=== PATIENT | female | born 1990 | race Two or more races ===

== ENCOUNTER 2017-10-12 18:02 | Emergency (ER) | payer BC ==
[~2017-10-12] VITALS: Ht 165.1 cm; Wt 54.6 kg
[2017-10-12 19:09] LABS: BASOPHILS # (AUTO) 0.02 x10^3/uL (0-0.1); BASOPHILS % (AUTO) 0 % (0-1); EOSINOPHILS # (AUTO) 0.04 x10^3/uL (0-0.4); EOSINOPHILS % (AUTO) 1 % (1-7); LYMPHOCYTES # (AUTO) 2.87 x10^3/uL (1-3.4); LYMPHOCYTES % (AUTO) 39 % (22-44); MD NO; MEAN CORPUSCULAR HEMOGLOBIN 31.5 pg (27.0-34.8); MEAN CORPUSCULAR HGB CONC 33.7 g/dL (32.4-35.8); MEAN CORPUSCULAR VOLUME 93.4 fL (80-100); MEAN PLATELET VOLUME 7.9 fL (7.4-10.4); MONOCYTES # (AUTO) 0.32 x10^3/uL (0.2-0.8); MONOCYTES % (AUTO) 4 % (2-9); NEUTROPHILS % (AUTO) 56 % (42-75); PLATELET COUNT 304 x10^3/uL (130-400); RED BLOOD COUNT 4.64 x10^6/uL (3.82-5.3); RED CELL DISTRIBUTION WIDTH 14.5 % (9.6-15.2)
[2017-10-12 19:17] LABS: ALANINE AMINOTRANSFERASE 31 U/L (12-78); ALBUMIN 3.7 g/dL (3.4-5.0); ANION GAP 7 mmol/L (5-15); CALCIUM 8.5 mg/dL (8.5-10.1); CHLORIDE 106 mmol/L (98-107); CREATININE 0.87 mg/dL (0.55-1.02)
[2017-10-12 19:22] LABS: ALKALINE PHOSPHATASE 118 U/L (45-117); BILIRUBIN,TOTAL 0.3 mg/dL (0.2-1.0); TOTAL PROTEIN 7.6 g/dL (6.4-8.2)
[2017-10-12] MEDS ORDERED: SODIUM CHLORIDE 0.9% 1,000ML IVBOLUS ONE (20:00)
[2017-10-12] MEDS ORDERED: PROCHLORPERAZINE 5 MG/ML, 2ML IVPush ONE (20:00)
[2017-10-12] MEDS ORDERED: LORazepam 2 MG/ML, 1ML IVPush ONE (20:00)
[2017-10-12] MEDS ORDERED: LORazepam 2 MG/ML, 1ML ONE (20:19)
[2017-10-12] MEDS ORDERED: PROCHLORPERAZINE 5 MG/ML, 2ML ONE (20:19)
[2017-10-12 21:58] VITALS: BP 137/98
== END 2017-10-12 22:01 | disposition home or self-care (01) ==
LOC: ED 20:00
DX: F10.220 Alcohol dependence with intoxication, uncomplicated (principal)
CPT/HCPCS: 36415; 71045; 80053; 80307; 83690; 84439; 84443; 84703; 85025; 93005; 96361; 96374; 96375; 99285; J0780; J2060; J7030

== ENCOUNTER 2018-08-25 20:01 | Emergency (ER) | payer OTHER ==
[~2018-08-25] VITALS: Ht 165.1 cm; Wt 52.1 kg
--- NOTE | 2018-08-25 20:07 | NUR ---
NIL X1
--- NOTE | 2018-08-25 20:20 | NUR ---
ATTEMPTED TO CALL PT FROM LOBBY TO TRIAGE FOR 2ND TIME WITH NO RESPONSE.
[2018-08-25] MEDS ORDERED: BUPR1FIL3 PO (20:53)
--- NOTE | 2018-08-25 20:57 | NUR ---
PT PRESENTED WITH C/O COUGH, SOB, WHEEZING. ALSO C/O CP WITH DEEP BREATHS THAT STARTED THIS MORNING. PT STATED SHE STARTED SMOKING CIGARETTES AND MARIJUANA ALOT X 2MOS. MONITORS APPLIED, SIDERAILS UP X2, CALL LIGHT WITHIN REACH. PT TO XRAY
[2018-08-25] MEDS ORDERED: ALBUTEROL/IPRATROPIUM 2.5MG/0.5MG, 3 ML NPPB ONE ×2 (21:00→22:00)
[2018-08-25] MEDS ORDERED: ALBUTEROL/IPRATROPIUM 2.5MG/0.5MG, 3 ML ONE (21:03)
--- NOTE | 2018-08-25 21:05 | NUR ---
PT MEDICATED PER JUL. RT AT PT'S BEDSIDE FOR T/X
[2018-08-25] MEDS ORDERED: ALBUTEROL SULFATE 2.5 MG/3 ML ONE (21:17)
[2018-08-25] MEDS ORDERED: ALBUTEROL SULFATE 2.5 MG/3 ML NPPB PRN (21:30)
[2018-08-25] MEDS ORDERED: ALBUTEROL 0.5%, 20ML ONE (22:05)
[2018-08-25 22:10] VITALS: BP 122/65
[2018-08-25] MEDS ORDERED: ALBUTEROL 0.5%, 20ML NPPBCONT PRN (22:30)
--- NOTE | 2018-08-25 23:40 | NUR ---
ERP AT PT'S BEDSIDE FOR RECHECK
--- NOTE | 2018-08-25 23:40 | NUR ---
PT RESTING ON GURNEY, NOTED PT WITH SP02-84% R/A, APPLIED 2L N/C-SPO2 NOW 93%. PT STATED " I CAN'T STAY, I HAVE TO GO". DISCUSSED POC WITH PT, PT AGREED TO WAIT AND SEE ERP PRIOR TO LEAVING AMA. ERP UPDATED REGARDING PT WANTING TO LEAVE AMA, AND O2 STATUS
== END 2018-08-25 23:50 | disposition left against medical advice (07) ==
LOC: ED 21:11
DX: J98.01 Acute bronchospasm (principal); R09.02 Hypoxemia
CPT/HCPCS: 71046; 93005; 94640; 94644; 99291; J7512; J7613; J7620

== ENCOUNTER 2018-09-04 09:10 | Emergency (ER) | payer SELFPAY ==
[~2018-09-04] VITALS: Ht 165.1 cm; Wt 50.2 kg
[~2018-09-04 09:10] MED LIST: BUPR1FIL3 PO
--- NOTE | 2018-09-04 09:24 | NUR ---
pt to room from lobby
--- NOTE | 2018-09-04 09:27 | NUR ---
27 Y/O FEMALE PRESENTS TO ED WITH C/O "I WAS HERE BEFORE FOR THIS. LAST TIME I GOT SOME STEROIDS AND AN INHALER. MY INHALER RAN OUT THREE DAYS AGO." PT PLACED ON CONT PULSE OX,NIBP. PT ON 3LPM OXYGEN. OXYGEN SATURATION 94%. NO C/O N/V/D, TRAUMA, CP.
[2018-09-04] MEDS ORDERED: SODIUM CHLORIDE FLUSH 10ML SYR IVF ONE (09:30)
--- NOTE | 2018-09-04 09:32 | NUR ---
pt texting on cell phone during assessment. no acute distress noted.
[2018-09-04] MEDS ORDERED: ALBUTEROL/IPRATROPIUM 2.5MG/0.5MG, 3 ML ONE (09:43)
[2018-09-04] MEDS ORDERED: ALBUTEROL SULFATE 2.5 MG/3 ML NPPB SCH (10:00)
[2018-09-04] MEDS ORDERED: ALBUTEROL SULFATE 2.5 MG/3 ML ONE (10:30)
[2018-09-04 10:50] VITALS: BP 106/70
--- NOTE | 2018-09-04 11:47 | NUR ---
PT NOW BACK FROM BATHROOM. REATTACHED TO MONITORS
--- NOTE | 2018-09-04 11:48 | NUR ---
LATE ENTRY FOR 1130 PT AMBULATORY WITH STEADY GAIT TO BATHROOM.
--- NOTE | 2018-09-04 11:48 | NUR ---
LATE ENTRY FOR 1030 PT RESTING ON GURNEY. TEXTING ON CELL PHONE. NO ACUTE DISTRESS NOTED. NO NEEDS REQUESTED AT THIS TIME.
--- NOTE | 2018-09-04 12:42 | NUR ---
Patient/Caregiver given discharge instructions and they have confirmed that they understand the instructions. Patient ambulatory with steady gait. PT LEFT WITH ALL PERSONAL BELONGINGS.
== END 2018-09-04 12:44 | disposition home or self-care (01) ==
LOC: ED 09:48
DX: J45.41 Moderate persistent asthma with (acute) exacerbation (principal); F17.200 Nicotine dependence, unspecified, uncomplicated
CPT/HCPCS: 71045; 93005; 94640; 99284; J7512; J7613

== ENCOUNTER 2018-09-16 09:41 | Emergency (ER) | payer MEDICAID ==
[~2018-09-16] VITALS: Ht 165.1 cm; Wt 49.8 kg
--- NOTE | 2018-09-16 10:02 | NUR ---
pt to ed after witnessed 45 second tonic/clonic sz today. mom states pt's head was resting against bath tub. pt reports pain to neck. noter reports nearly no post-ictal period. pt recently dc'd from rehab for heroin use. last used 9 days ago. currently taking subonoxe. connected to monitors. tachy 110s, all other vss. edpa to bedside. awaiting orders at this time.
[2018-09-16] MEDS ORDERED: SODIUM CHLORIDE FLUSH 10ML SYR IVF ONE (10:30)
[2018-09-16 10:51] LABS: BASOPHILS # (AUTO) 0.02 x10^3/uL (0-0.1); BASOPHILS % (AUTO) 1 % (0-1); EOSINOPHILS # (AUTO) 0.13 x10^3/uL (0-0.4); EOSINOPHILS % (AUTO) 3 % (1-7); LYMPHOCYTES # (AUTO) 1.81 x10^3/uL (1-3.4); LYMPHOCYTES % (AUTO) 36 % (22-44); MD NO; MEAN CORPUSCULAR HEMOGLOBIN 28.8 pg (27.0-34.8); MEAN CORPUSCULAR HGB CONC 32.9 g/dL (32.4-35.8); MEAN CORPUSCULAR VOLUME 87.7 fL (80-100); MEAN PLATELET VOLUME 8.4 fL (7.4-10.4); MONOCYTES # (AUTO) 0.19 x10^3/uL (0.2-0.8); MONOCYTES % (AUTO) 4 % (2-9); NEUTROPHILS # (AUTO) 2.88 x10^3/uL (1.8-6.8); NEUTROPHILS % (AUTO) 57 % (42-75); PLATELET COUNT 339 x10^3/uL (130-400); RED BLOOD COUNT 4.74 x10^6/uL (3.82-5.3); RED CELL DISTRIBUTION WIDTH 19.2 % (9.6-15.2)
--- NOTE | 2018-09-16 10:51 | NUR ---
pt resting in room. vss. multiple nurses attempting iv at this time.
[2018-09-16 10:59] LABS: ALANINE AMINOTRANSFERASE 23 U/L (12-78); ALBUMIN 3.7 g/dL (3.4-5.0); ANION GAP 8 mmol/L (5-15); CALCIUM 8.8 mg/dL (8.5-10.1); CHLORIDE 104 mmol/L (98-107); CREATININE 0.87 mg/dL (0.55-1.02)
[2018-09-16 11:02] LABS: ALKALINE PHOSPHATASE 63 U/L (45-117); BILIRUBIN,TOTAL 0.2 mg/dL (0.2-1.0); TOTAL PROTEIN 7.1 g/dL (6.4-8.2)
--- NOTE | 2018-09-16 11:40 | NUR ---
ed,d to bs to updat on poc. awaiting dispo.
[2018-09-16 11:57] LABS: MICROSCOPIC AUTO
[2018-09-16 11:58] LABS: CULTURE INDICATED? NO
[2018-09-16 12:21] VITALS: BP 101/89
== END 2018-09-16 12:26 | disposition home or self-care (01) ==
LOC: ED 10:01
DX: R55 Syncope and collapse (principal)
CPT/HCPCS: 36415; 70450; 80053; 81001; 84703; 85025; 93005; 99284

== ENCOUNTER 2018-10-30 19:47 | Emergency (ER) | payer MEDICAID ==
[~2018-10-30] VITALS: Ht 167.6 cm; Wt 49.5 kg
[2018-10-30 20:18] VITALS: BP 124/94
[2018-10-30] MEDS ORDERED: CARBAMIDE PEROXIDE EAR DROPS 6.5%, 15ML RIGHT EAR ONE (20:30)
[2018-10-30] MEDS ORDERED: CARBAMIDE PEROXIDE EAR DROPS 6.5%, 15ML ONE ×2 (20:38)
--- NOTE | 2018-10-30 21:31 | NUR ---
Pt reports feeling "much better" after second irrigation.
== END 2018-10-30 22:04 | disposition home or self-care (01) ==
LOC: ED 22:00
DX: H61.21 Impacted cerumen, right ear (principal); H66.91 Otitis media, unspecified, right ear
CPT/HCPCS: 69209; 99283

== ENCOUNTER 2018-12-03 08:41 | Emergency (ER) | payer MEDICAID ==
[~2018-12-03] VITALS: Ht 165.1 cm; Wt 47.2 kg
[2018-12-03 09:14] LABS: BASOPHILS # (AUTO) 0.03 x10^3/uL (0-0.1); BASOPHILS % (AUTO) 0 % (0-1); EOSINOPHILS # (AUTO) 1.45 x10^3/uL (0-0.4); EOSINOPHILS % (AUTO) 19 % (1-7); LYMPHOCYTES # (AUTO) 1.08 x10^3/uL (1-3.4); LYMPHOCYTES % (AUTO) 14 % (22-44); MD NO; MEAN CORPUSCULAR HEMOGLOBIN 25.3 pg (27.0-34.8); MEAN CORPUSCULAR HGB CONC 31.3 g/dL (32.4-35.8); MEAN CORPUSCULAR VOLUME 80.9 fL (80-100); MEAN PLATELET VOLUME 7.5 fL (7.4-10.4); MONOCYTES # (AUTO) 0.31 x10^3/uL (0.2-0.8); MONOCYTES % (AUTO) 4 % (2-9); NEUTROPHILS # (AUTO) 4.63 x10^3/uL (1.8-6.8); NEUTROPHILS % (AUTO) 62 % (42-75); PLATELET COUNT 383 x10^3/uL (130-400); RED BLOOD COUNT 4.11 x10^6/uL (3.82-5.3); RED CELL DISTRIBUTION WIDTH 18.2 % (9.6-15.2)
[2018-12-03 09:25] LABS: ALBUMIN 3.5 g/dL (3.4-5.0); ANION GAP 6 mmol/L (5-15); CALCIUM 8.8 mg/dL (8.5-10.1); CHLORIDE 109 mmol/L (98-107); CREATININE 0.76 mg/dL (0.55-1.02)
[2018-12-03 09:28] LABS: TROPONIN I < 0.015 ng/mL (0.000-0.045)
--- NOTE | 2018-12-03 10:04 | NUR ---
TO ROOM FROM LOBBY. NAD.
--- NOTE | 2018-12-03 10:16 | NUR ---
PT STATES SHE HAS BEEN HAVING A HARD TIME BREATHING THE LAST COUPLE MONTHS. PT STATES SHE HAD CP THIS AM WITH INCREASED SOB. PT WITH HX OF SMOKING HEROIN, AND THINKS HER BREATHING PROBLEMS ARE RELATED TO THAT. PT TO CONT PULSE OX, CARD MONITOR, NIBP.
[2018-12-03] MEDS ORDERED: SODIUM CHLORIDE 0.9% 1,000ML IVBOLUS ONE (10:30)
--- NOTE | 2018-12-03 11:08 | NUR ---
LAB IN TO DRAW PT. ORDERS RECIEVED FOR PIV, FLUID BOLUS, WILL START LINE
--- NOTE | 2018-12-03 12:13 | NUR ---
PT AMBULATED TO BR, PT WITH STEADY GAIT
--- NOTE | 2018-12-03 12:27 | NUR ---
Patient given discharge instructions and they have confirmed that they understand the instructions. Patient ambulatory with steady gait. Patient left with dc paperwork, prescription, note for medical clearance and ability to take antibiotics in rehab, and all personal belongings. NADN. Pt encouraged to return to ED if symptoms worsen or change.
[2018-12-03 12:28] VITALS: BP 131/88
== END 2018-12-03 12:31 | disposition home or self-care (01) ==
LOC: ED 10:30
DX: J18.1 Lobar pneumonia, unspecified organism (principal); F11.23 Opioid dependence with withdrawal
CPT/HCPCS: 36415; 71046; 80048; 82040; 83605; 84145; 84484; 85025; 87040; 93005; 99284; J7030

== ENCOUNTER 2019-05-19 20:12 | Emergency (ER) | payer MEDICAID ==
[~2019-05-19] VITALS: Ht 165.1 cm; Wt 47.9 kg
[2019-05-19] MEDS ORDERED: ALBUTEROL/IPRATROPIUM 2.5MG/0.5MG, 3 ML NPPB ONE (21:00)
--- NOTE | 2019-05-19 22:36 | NUR ---
Pt here for sob witha possible asthma exacerbation. Pt reports she has not been feeling well at home. Pt reports inablilty to ambulate due to severe sob. Pt on room air is hypoxic in low 85%. Pt denies any trauma but does smoke 1 pack of cigarettes a day. Pt has a brisk cap refill but appears malnurished at this time. Pt reports no drug use. Pt does have scars on her arms and hands that would resembele needle puncutures. Pt has child with her who is her son and appears to be well taken care. Of father at bedside caring for child.
--- NOTE | 2019-05-19 22:52 | NUR ---
RT AT BEDSIDE
[2019-05-19] MEDS: ALBUTEROL SULFATE 2.5 MG/3 ML NPPB SCH (23:31)
--- NOTE | 2019-05-20 00:10 | NUR ---
Report to Jass RAI
[2019-05-20] MEDS ORDERED: MAGNESIUM SULFATE PMX 2GM/50ML 50 ML IV ONE (00:30)
[2019-05-20] MEDS ORDERED: AZITHROMYCIN 500 MG in SODIUM CHLORIDE 0.9% 250 ML IVPB ONE (00:30)
[2019-05-20] MEDS ORDERED: MAGNESIUM SULFATE PMX 2GM/50ML 50 ML ONE (00:32)
--- NOTE | 2019-05-20 02:28 | NUR ---
PT STATES SHE IS NOT GONNA STAY IN THE HOSPITAL. PHYSICIAN NOTIFIED.
--- NOTE | 2019-05-20 02:52 | NUR ---
PT INFORMED OF POSSIBLE COMPLICATIONS INCLUDING MULTI TIMES. PT UNDERSTANDS THE RISKS AND STILL WISHES TO LEAVE AMA. FORM SIGNED.
[2019-05-20 03:05] VITALS: BP 105/71
== END 2019-05-20 03:10 | disposition left against medical advice (07) ==
LOC: ED 23:09 → EDIP 05-20 01:36 → UNDOADMIN 05-20 01:36 → ED 05-20 03:10
DX: J45.902 Unspecified asthma with status asthmaticus (principal); R09.02 Hypoxemia
CPT/HCPCS: 71045; 93005; 94640; 96365; 96366; 96368; 99291; J0456; J3475; J7050; J7512; J7613; J7620

== ENCOUNTER 2019-09-21 09:21 | Emergency (ER) | payer SELFPAY ==
[~2019-09-21] VITALS: Ht 165.1 cm; Wt 49.0 kg
--- NOTE | 2019-09-21 09:30 | NUR ---
KARLA-Deisy IS AT THE BEDSIDE FOR ASSESSMENT
[2019-09-21] MEDS ORDERED: ALBUTEROL SULFATE 2.5 MG/3 ML ONE ×3 (09:46→11:08)
[2019-09-21] MEDS: ALBUTEROL SULFATE 2.5 MG/3 ML NPPB SCH ×2 (09:57→10:19)
[2019-09-21] MEDS ORDERED: ALBUTEROL HFA 90 MCG/SPRAY INH PRN (10:00)
--- NOTE | 2019-09-21 10:19 | NUR ---
PT SLEEPING INTERMITTENTLY WHILE ADMINISTERING NEB.
--- NOTE | 2019-09-21 11:13 | NUR ---
PT SLEEPING W POOR ROOM AIR SAT. I WILL AWAKEN, AND RE-EVALUATE.
--- NOTE | 2019-09-21 11:33 | NUR ---
IS AT THE BEDSIDE FOR CONSULT. PT AGREEABLE TO APPROX 1 HOUR OF OBSERVATION PRIOR TO D/C. ROOM AIR CHALLENGE UNDERWAY NOW.
--- NOTE | 2019-09-21 11:49 | NUR ---
PT HAS DIFFICULTY MAINTAINING >90% O2 SAT ON ROOM AIR. SUPPLEMENTAL O2 RE-APPLIED, AND PA-C NOTIFIED
--- NOTE | 2019-09-21 12:34 | NUR ---
with continued difficulty maintaining o2 sats, admission to the hospital was recommended. this pt is not agreeable to admission, and wishes to leave the emergency dept. prescriptions will be given, education provided, and ama paperwork signed. i will prepare for d/c time.
[2019-09-21 12:36] VITALS: BP 124/83
== END 2019-09-21 13:01 | disposition left against medical advice (07) ==
LOC: ED 09:30
DX: J45.41 Moderate persistent asthma with (acute) exacerbation (principal); R09.02 Hypoxemia
CPT/HCPCS: 71045; 94640; 99285; J7512; J7613

== ENCOUNTER 2019-09-23 13:23 | Emergency (ER) | payer MEDICAID, OTHER ==
[~2019-09-23] VITALS: Ht 165.1 cm; Wt 49.7 kg
[2019-09-23 13:25] VITALS: BP 147/96
--- NOTE | 2019-09-23 13:38 | NUR ---
PT AMBULATED TO ROOM WITH A STEADY GAIT. PT IMMEDIATELY WENT TO THE BATHROOM. PT REMAINED IN RESTROOM FOR 10 MINUTES DESPITE THIS RN KNOCKING ON THE DOOR TO ENCOURAGE PT TO RETURN TO THE ROOM AND BE PLACED ON NASAL CANNULA.
[2019-09-23] MEDS ORDERED: LORazepam 1MG TABLET PO ONE (14:00)
[2019-09-23] MEDS ORDERED: ALBUTEROL/IPRATROPIUM 2.5MG/0.5MG, 3 ML NPPB SCH (14:00)
[2019-09-23] MEDS ORDERED: LORazepam 1MG TABLET ONE (14:03)
[2019-09-23] MEDS ORDERED: ALBUTEROL/IPRATROPIUM 2.5MG/0.5MG, 3 ML ONE (14:04)
--- NOTE | 2019-09-23 14:13 | NUR ---
BREATHING TREATMENT IN PROCESS, PT TOLERATING
--- NOTE | 2019-09-23 15:30 | NUR ---
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 VSS.
--- NOTE | 2019-09-23 15:53 | NUR ---
Patient/Caregiver given discharge instructions and they have confirmed that they understand the instructions. Patient ambulatory with steady gait.
== END 2019-09-23 15:56 | disposition home or self-care (01) ==
LOC: ED 14:25
DX: J45.41 Moderate persistent asthma with (acute) exacerbation (principal); F41.1 Generalized anxiety disorder; F15.10 Other stimulant abuse, uncomplicated; F11.10 Opioid abuse, uncomplicated; F17.200 Nicotine dependence, unspecified, uncomplicated
CPT/HCPCS: 94640; 99283

== ENCOUNTER 2019-10-03 09:35 | Emergency (ER) | payer SELFPAY ==
[~2019-10-03] VITALS: Ht 170.2 cm; Wt 55.0 kg
--- NOTE | 2019-10-03 09:48 | NUR ---
CABLE TV INSTALLER: PTS MOTHER JEAN [phone]
--- NOTE | 2019-10-03 09:58 | NUR ---
PT REPORT FROM FREDI MCCORD. PT CARE TO BE ASSUMED.
--- NOTE | 2019-10-03 10:26 | NUR ---
CXR DONE. PT SITTING UPRIGHT ON BED APPLYING MAKEUP. A&OX4, RESP EVEN & UNLABORED, SPEECH CLEAR, SKIN WNL. DENIES DYSPNEA, SOB. STATES HER O2 SAT'S WERE LOW AT [facility] TODAY - TRIED TO CHECK HERSELF IN FOR REHAB FOR HEROIN. LAST HEROIN USE 0600 TODAY.
[2019-10-03] MEDS ORDERED: ALBU90AE INH (10:31)
--- NOTE | 2019-10-03 10:33 | NUR ---
DR MOTA AT DISCUSSING POC
[2019-10-03 11:36] LABS: ALBUMIN 3.1 g/dL (3.4-5.0); ANION GAP 6 mmol/L (5-15); CALCIUM 8.4 mg/dL (8.5-10.1); CHLORIDE 110 mmol/L (98-107)
[2019-10-03 11:41] LABS: ALANINE AMINOTRANSFERASE 351 U/L (12-78); ALKALINE PHOSPHATASE 128 U/L (45-117); BILIRUBIN,TOTAL 0.4 mg/dL (0.2-1.0); TOTAL PROTEIN 7.6 g/dL (6.4-8.2)
--- NOTE | 2019-10-03 11:41 | NUR ---
LAB AT FOR DRAW ATTEMPT #2
[2019-10-03 12:26] LABS: BASOPHILS # (AUTO) 0.02 x10^3/uL (0-0.1); BASOPHILS % (AUTO) 0 % (0-1); EOSINOPHILS % (AUTO) 22 % (1-7); LYMPHOCYTES # (AUTO) 1.29 x10^3/uL (1-3.4); LYMPHOCYTES % (AUTO) 24 % (22-44); MD NO; MEAN CORPUSCULAR HEMOGLOBIN 23.5 pg (27.0-34.8); MEAN CORPUSCULAR HGB CONC 31.1 g/dL (32.4-35.8); MEAN CORPUSCULAR VOLUME 75.6 fL (80-100); MEAN PLATELET VOLUME 9.3 fL (7.4-10.4); MONOCYTES # (AUTO) 0.31 x10^3/uL (0.2-0.8); MONOCYTES % (AUTO) 6 % (2-9); NEUTROPHILS # (AUTO) 2.59 x10^3/uL (1.8-6.8); NEUTROPHILS % (AUTO) 48 % (42-75); PLATELET COUNT 231 x10^3/uL (130-400); RED BLOOD COUNT 4.74 x10^6/uL (3.82-5.3); RED CELL DISTRIBUTION WIDTH 19.3 % (9.6-15.2)
[2019-10-03 13:03] VITALS: BP 113/86
== END 2019-10-03 13:56 | disposition home or self-care (01) ==
LOC: ED 11:19
DX: J45.41 Moderate persistent asthma with (acute) exacerbation (principal); F10.10 Alcohol abuse, uncomplicated; F15.10 Other stimulant abuse, uncomplicated; F11.10 Opioid abuse, uncomplicated; R06.02 Shortness of breath; R00.0 Tachycardia, unspecified; R74.9 Abnormal serum enzyme level, unspecified; F17.200 Nicotine dependence, unspecified, uncomplicated; Y90.0 Blood alcohol level of less than 20 mg/100 ml
CPT/HCPCS: 36415; 71045; 80053; 85025; 93005; 99285

== ENCOUNTER 2019-10-04 14:51 | Observation (INO) | payer MEDICAID, OTHER ==
[~2019-10-04] VITALS: Ht 165.1 cm; Wt 53.3 kg
[~2019-10-04 14:51] MED LIST changes: +ALBU90AE INH
--- NOTE | 2019-10-04 15:51 | NUR ---
BREAK RN- MOTHER AT BEDIDE, PT RESTING IN BED.
--- NOTE | 2019-10-04 15:52 | NUR ---
PT REFUSING VITAL SIGN MONITORING AT THIS TIME.
[2019-10-04] MEDS ORDERED: ALBUTEROL SULFATE 2.5 MG/3 ML NPPB ONE (16:50)
[2019-10-04] MEDS ORDERED: ALBUTEROL/IPRATROPIUM 2.5MG/0.5MG, 3 ML ONE (16:53)
[2019-10-04] MEDS ORDERED: ALBUTEROL SULFATE 2.5MG/0.5ML ONE (16:55)
[2019-10-04] MEDS ORDERED: ALBUTEROL/IPRATROPIUM 2.5MG/0.5MG, 3 ML NPPB ONE (17:00)
[2019-10-04] MEDS ORDERED: SODIUM CHLORIDE 0.9% 1,000ML IVBOLUS ONE (17:00)
--- NOTE | 2019-10-04 17:23 | NUR ---
Patient sleeping in [facility]. Mother at bedside. Urine and blood sample sent.
[2019-10-04] MEDS ORDERED: LORazepam 2 MG/ML, 1ML ONE (17:27)
[2019-10-04 17:29] LABS: MEAN CORPUSCULAR HEMOGLOBIN 23.4 pg (27.0-34.8); MEAN CORPUSCULAR HGB CONC 31.3 g/dL (32.4-35.8); MEAN CORPUSCULAR VOLUME 74.7 fL (80-100); MEAN PLATELET VOLUME 8.8 fL (7.4-10.4); PLATELET COUNT 289 x10^3/uL (130-400); RED BLOOD COUNT 4.71 x10^6/uL (3.82-5.3); RED CELL DISTRIBUTION WIDTH 19.6 % (9.6-15.2)
[2019-10-04] MEDS ORDERED: LORazepam 2 MG/ML, 1ML IM ONE (17:30)
[2019-10-04 17:32] LABS: MICROSCOPIC INDICATED
[2019-10-04 17:42] LABS: AMPHETAMINE SCREEN, URINE Positive (Negative); BARBITURATE SCREEN, URINE Negative (Negative); BENZODIAZEPINE SCREEN, URINE Negative (Negative); CANNABINOID SCREEN, URINE Negative (Negative); COCAINE SCREEN, URINE Negative (Negative); METHADONE SCREEN, URINE Negative (Negative); OPIATE SCREEN, URINE Positive (Negative)
[2019-10-04 17:43] LABS: ALANINE AMINOTRANSFERASE 326 U/L (12-78); ALBUMIN 2.9 g/dL (3.4-5.0); ANION GAP 7 mmol/L (5-15); CHLORIDE 112 mmol/L (98-107); CREATININE 0.67 mg/dL (0.55-1.02)
[2019-10-04 17:44] LABS: SALICYLATE LEVEL < 1.7 mg/dL (2.8-20.0)
[2019-10-04 17:48] LABS: ALKALINE PHOSPHATASE 126 U/L (45-117); BILIRUBIN,TOTAL 0.4 mg/dL (0.2-1.0); TOTAL PROTEIN 7.1 g/dL (6.4-8.2)
[2019-10-04 18:08] LABS: BASOPHILS % (AUTO) 0 % (0-1); EOSINOPHILS # (AUTO) 0.14 x10^3/uL (0-0.4); EOSINOPHILS % (AUTO) 1 % (1-7); LYMPHOCYTES % (AUTO) 13 % (22-44); MD SCAN; MONOCYTES # (AUTO) 0.04 x10^3/uL (0.2-0.8); MONOCYTES % (AUTO) 0 % (2-9); NEUTROPHILS # (AUTO) 9.32 x10^3/uL (1.8-6.8); NEUTROPHILS % (AUTO) 86 % (42-75)
--- NOTE | 2019-10-04 18:17 | NUR ---
RAMA HELMS AT BEDSIDE
[2019-10-04 18:25] LABS: CULTURE INDICATED? YES
--- NOTE | 2019-10-04 18:45 | NUR ---
REPORT FROM SOPHIE RAI ASSUMING CARE OF PT
--- NOTE | 2019-10-04 18:56 | NUR ---
SW CALLED TO FOLLOW UP ON CONSULT, PER SW THEY CANNOT COME TO ER DUE TO WORKING IN NICU WELL. SW TO FAX RESOURCES FOR RN TO PROVIDE PT AND FAMILY WITH.
--- NOTE | 2019-10-04 20:23 | NUR ---
REPORT TO FLOOR RN PT READY FOR TRANSFER TO FLOOR AT THIS TIME
[2019-10-04] MEDS ORDERED: LORazepam 1MG TABLET PO PRN (20:30)
[2019-10-04] MEDS ORDERED: ONDANSETRON ODT 4 MG PO PRN (20:30)
[2019-10-04] MEDS ORDERED: ONDANSETRON 2MG/ML, 2ML IVPush PRN (20:30)
[2019-10-04] MEDS ORDERED: LORazepam 2 MG/ML, 1ML IVPush PRN (20:30)
[2019-10-04] MEDS: PLEASE ENTER WEIGHT MC SCH (20:30)
[2019-10-04] MEDS: SODIUM CHLORIDE 0.9% 1,000 ML IV SCH (21:16)
[2019-10-04 21:27] VITALS: BP 110/77
[2019-10-05 02:55] VITALS: BP 107/69
[2019-10-05] MEDS: SODIUM CHLORIDE 0.9% 1,000 ML IV SCH (03:31)
[2019-10-05] MEDS: PLEASE ENTER WEIGHT MC SCH ×2 (04:30→14:51)
[2019-10-05 07:53] VITALS: BP 126/88
[2019-10-05] MEDS ORDERED: NICOTINE 21 MG/24 HR PATCH.TD24 TD SCH (09:00)
[2019-10-05] MEDS ORDERED: ALBUTEROL/IPRATROPIUM 2.5MG/0.5MG, 3 ML IPPB SCH (10:00)
[2019-10-05] MEDS: ALBUTEROL/IPRATROPIUM 2.5MG/0.5MG, 3 ML NPPB SCH ×2 (10:00→16:15)
[2019-10-05 10:38] LABS: ALANINE AMINOTRANSFERASE 317 U/L (12-78); ALBUMIN 2.8 g/dL (3.4-5.0); ANION GAP 6 mmol/L (5-15); CHLORIDE 113 mmol/L (98-107); CREATININE 0.78 mg/dL (0.55-1.02)
[2019-10-05 10:40] LABS: ALKALINE PHOSPHATASE 126 U/L (45-117); BILIRUBIN,TOTAL 0.4 mg/dL (0.2-1.0); TOTAL PROTEIN 7.1 g/dL (6.4-8.2)
[2019-10-05 13:06] LABS: MEAN CORPUSCULAR HEMOGLOBIN 23.2 pg (27.0-34.8); MEAN CORPUSCULAR HGB CONC 30.9 g/dL (32.4-35.8); MEAN CORPUSCULAR VOLUME 75.1 fL (80-100); MEAN PLATELET VOLUME 8.9 fL (7.4-10.4); PLATELET COUNT 287 x10^3/uL (130-400); RED BLOOD COUNT 4.96 x10^6/uL (3.82-5.3)
[2019-10-05 13:19] LABS: BASOPHILS # (AUTO) 0.02 x10^3/uL (0-0.1); BASOPHILS % (AUTO) 0 % (0-1); EOSINOPHILS # (AUTO) 0.07 x10^3/uL (0-0.4); EOSINOPHILS % (AUTO) 1 % (1-7); LYMPHOCYTES # (AUTO) 1.01 x10^3/uL (1-3.4); LYMPHOCYTES % (AUTO) 12 % (22-44); MD NO; MONOCYTES # (AUTO) 0.21 x10^3/uL (0.2-0.8); MONOCYTES % (AUTO) 3 % (2-9); NEUTROPHILS # (AUTO) 7.08 x10^3/uL (1.8-6.8); NEUTROPHILS % (AUTO) 84 % (42-75)
[2019-10-05 13:23] VITALS: BP 121/84
[2019-10-05] MEDS ORDERED: BUPRENORPHINE/NALOXONE 8-2MG SL ONE (14:30)
[2019-10-06] MEDS ORDERED: BUPRENORPHINE/NALOXONE 8-2MG SL SCH (09:00)
== END 2019-10-05 16:44 | disposition home or self-care (01) ==
LOC: ED 15:26 → EDIP 19:16 → INTOOBSV 19:16 → 4EST 20:42
PROVIDERS: ADMIT Hospitalist; ATTEND Hospitalist
DX: J45.909 Unspecified asthma, uncomplicated (principal); R65.10 Systemic inflammatory response syndrome (SIRS) of non-infectious origin without acute organ dysfunction; R41.82 Altered mental status, unspecified; R45.851 Suicidal ideations; G92 Toxic encephalopathy; D72.829 Elevated white blood cell count, unspecified; D50.9 Iron deficiency anemia, unspecified; F10.229 Alcohol dependence with intoxication, unspecified; F50.9 Eating disorder, unspecified; K59.00 Constipation, unspecified; F41.1 Generalized anxiety disorder; F17.210 Nicotine dependence, cigarettes, uncomplicated; F11.23 Opioid dependence with withdrawal; R09.02 Hypoxemia; Z79.899 Other long term (current) drug therapy; Z91.5 Personal history of self-harm
CPT/HCPCS: 36415; 71045; 80053; 80074; 80307; 81001; 84703; 85025; 87086; 87521; 93005; 94640; 96361; 96372; 96374; 99285; G0378; J0574; J2060; J7030; J7613; Q0177

== ENCOUNTER 2019-12-05 16:52 | Inpatient (IN) | payer MEDICAID ==
[~2019-12-05] VITALS: Ht 165.1 cm; Wt 53.4 kg
[2019-12-05] MEDS ORDERED: KETAMINE 100 MG/ML, 5ML IM ONE (17:00)
--- NOTE | 2019-12-05 17:28 | NUR ---
PT BIB EMS FOR MULITPLE DRUG USE. PT RECENTLY USED HEROIN, ETOH, METH, SUBAXONE AND SEROQUEL. PT RECENT RELAPSE FROM BEING CLEAN FOR 60 DAYS. PT COMBATIVE, RESTRAINED IN ROUTE, GIVEN 2 VERSED. PT SECURED TO [facility] IN 4 POINT RESTRAINTS. PT EXTREMELY COMBATIVE AND UNSAFE, SWINGING LIMBS VIOLENTY TO STAFF. PT IN GOWN, ROOF SHINGLER APPLIED. MD CONNER AT BEDSIDE.
[2019-12-05] MEDS ORDERED: PLEASE ENTER HEIGHT AND WEIGHT MC SCH (17:30)
[2019-12-05] MEDS ORDERED: SODIUM CHLORIDE 0.9% 1,000ML IVBOLUS ONE ×2 (17:30→19:00)
[2019-12-05] MEDS ORDERED: LORazepam 2 MG/ML, 1ML IVPush ONE ×11 (18:00→23:30)
[2019-12-05] MEDS ORDERED: LORazepam 2 MG/ML, 1ML ONE ×10 (18:02→23:25)
--- NOTE | 2019-12-05 18:04 | NUR ---
JOSELYN AMAYA, LABS DRAWN, PT RESPONDING TO VERBAL COMMANDS. STATES SHE IS ARIELLA AND UNAWARE OF SITUATION. SECURITY CALLED TO REMOVE RESTRAINTS. PT AGREES TO COOPERATE
[2019-12-05 18:11] LABS: ALANINE AMINOTRANSFERASE 112 U/L (12-78); ALBUMIN 3.2 g/dL (3.4-5.0); ANION GAP 12 mmol/L (5-15); CALCIUM 8.2 mg/dL (8.5-10.1); CHLORIDE 114 mmol/L (98-107); CREATININE 0.73 mg/dL (0.55-1.02); SALICYLATE LEVEL < 1.7 mg/dL (2.8-20.0)
[2019-12-05 18:14] LABS: ALKALINE PHOSPHATASE 103 U/L (45-117); BILIRUBIN,TOTAL 0.3 mg/dL (0.2-1.0); CREATINE KINASE, TOTAL 104 U/L (26-192)
[2019-12-05 18:36] LABS: AMPHETAMINE SCREEN, URINE Positive (Negative); BENZODIAZEPINE SCREEN, URINE Positive (Negative); CANNABINOID SCREEN, URINE Negative (Negative); COCAINE SCREEN, URINE Negative (Negative); OPIATE SCREEN, URINE Positive (Negative)
[2019-12-05 18:38] LABS: BARBITURATE SCREEN, URINE Negative (Negative); METHADONE SCREEN, URINE Negative (Negative)
[2019-12-05 18:39] LABS: MD YES; MEAN CORPUSCULAR HEMOGLOBIN 23.9 pg (27.0-34.8); MEAN CORPUSCULAR HGB CONC 31.4 g/dL (32.4-35.8); MEAN CORPUSCULAR VOLUME 76.1 fL (80-100); MEAN PLATELET VOLUME 8.4 fL (7.4-10.4); PLATELET COUNT 248 x10^3/uL (130-400); RED BLOOD COUNT 4.33 x10^6/uL (3.82-5.3); RED CELL DISTRIBUTION WIDTH 20.2 % (9.6-15.2)
--- NOTE | 2019-12-05 18:41 | NUR ---
PT SQUIRMING AROUND, UNABLE TO BE STILL. DISCUSSED W . ORDER OF ATIVAN 1 MG FOR AGITATATION. FAMILY AT BEDSIDE. BULK STATION AGENT AT BEDSIDE DISCUSSING POC.
[2019-12-05 18:42] LABS: BAND#(MANUAL) 0.05 x10^3/uL; BANDS%(MANUAL) 1 % (0-7); EOS#(MANUAL) 0.14 x10^3/uL (0.0-0.4); EOS% (MANUAL) 3 % (1-7); LYMPH#(MANUAL) 0.56 x10^3/uL (1-3.4); LYMPHS% (MANUAL) 12 % (22-44); MONOS#(MANUAL) 0.19 x10^3/uL (0.3-2.7); MONOS% (MANUAL) 4 % (2-9); SEG#(MANUAL) 3.76 x10^3/uL (1.8-6.8); SEGS% (MANUAL) 80 % (42-75)
[2019-12-05 18:43] LABS: <PLATELET ESTIMATE> ADEQUATE; <PLT MORPHOLOGY> NORMAL PLT MORPH; ANISOCYTOSIS 1+; MICROCYTOSIS 1+; OVALOCYTES 1+
--- NOTE | 2019-12-05 18:46 | NUR ---
REPORT TO RAJI.
--- NOTE | 2019-12-05 19:04 | NUR ---
PT AGITATED AND TACHY PROVIDER AT BEDSIDE. PLACED ON SOFT WRIST RESTRAINTS. FAMILY AT BEDSIDE.
[2019-12-05] MEDS ORDERED: DIPHENHYDRAMINE 50 MG/ML, 1ML IVPush PRN ×2 (19:30→20:00)
[2019-12-05] MEDS ORDERED: OLANZAPINE 10 MG INJ IM ONE (19:30)
[2019-12-05] MEDS ORDERED: DIPHENHYDRAMINE 50 MG/ML, 1ML ONE (19:36)
--- NOTE | 2019-12-05 19:39 | NUR ---
LEONILA RN: ARGELIA PEREZ
[2019-12-05 19:48] LABS: TROPONIN I < 0.015 ng/mL (0.000-0.045)
[2019-12-05] MEDS ORDERED: POTASSIUM CHLORIDE 30 MEQ in SODIUM CHLORIDE 0.45% 1,000 ML IV SCH (20:00)
[2019-12-05] MEDS ORDERED: MAGNESIUM SULFATE PMX 2GM/50ML 50 ML IV ONE (20:00)
[2019-12-05] MEDS ORDERED: BISACODYL 10 MG SUPP PR PRN (20:00)
[2019-12-05] MEDS ORDERED: ONDANSETRON 2MG/ML, 2ML IVPush PRN (20:00)
[2019-12-05] MEDS ORDERED: MAGNESIUM SULFATE PMX 2GM/50ML 50 ML ONE (20:26)
[2019-12-05] MEDS ORDERED: HEPARIN 5,000 UNITS/ML, 1ML ONE (20:41)
[2019-12-05] MEDS: HEPARIN 5,000 UNITS/ML, 1ML SQ SCH (20:45)
--- NOTE | 2019-12-05 20:52 | NUR ---
PT'S MOTHER JEAN [phone] CALL FOR UPDATE.
--- NOTE | 2019-12-05 21:09 | NUR ---
REPORT GIVEN TO LAURA RAI.
--- NOTE | 2019-12-05 21:12 | NUR ---
PT CONTINUES TO BE AGITATED WITH NOTED IMPROVEMENT, STILL ON 4 POINT SOFT WRIST RESTRAINTS. SEIZURE AND FALL PRECAUTIONS IN PLACE.
--- NOTE | 2019-12-05 21:30 | NUR ---
PT VOIDED, PERICARE PROVIDED AND CHANGED GOWN AND SHEETS.
--- NOTE | 2019-12-05 23:40 | NUR ---
PT URINATED AND HAS MENSTRUAL PERIOD, PERICARE PROVIDED, CHANGED GOWN AND SHEETS. MEDICATED PER JUL. VSS.
[2019-12-06 00:30] VITALS: BP 136/77
[2019-12-06 03:13] VITALS: BP 132/84
[2019-12-06] MEDS: HEPARIN 5,000 UNITS/ML, 1ML SQ SCH ×3 (04:27→19:58)
[2019-12-06 06:57] VITALS: BP 141/88
[2019-12-06 09:27] LABS: MEAN CORPUSCULAR HEMOGLOBIN 23.5 pg (27.0-34.8); MEAN CORPUSCULAR VOLUME 75.9 fL (80-100); MEAN PLATELET VOLUME 8.5 fL (7.4-10.4); PLATELET COUNT 266 x10^3/uL (130-400); RED BLOOD COUNT 4.09 x10^6/uL (3.82-5.3); RED CELL DISTRIBUTION WIDTH 20.3 % (9.6-15.2)
[2019-12-06 09:38] LABS: CHLORIDE 116 mmol/L (98-107)
[2019-12-06 09:43] LABS: BASOPHILS # (AUTO) 0.02 x10^3/uL (0-0.1); BASOPHILS % (AUTO) 0 % (0-1); EOSINOPHILS # (AUTO) 0.31 x10^3/uL (0-0.4); EOSINOPHILS % (AUTO) 4 % (1-7); LYMPHOCYTES # (AUTO) 1.27 x10^3/uL (1-3.4); LYMPHOCYTES % (AUTO) 17 % (22-44); MD NO; MONOCYTES # (AUTO) 0.58 x10^3/uL (0.2-0.8); MONOCYTES % (AUTO) 8 % (2-9); NEUTROPHILS # (AUTO) 5.17 x10^3/uL (1.8-6.8); NEUTROPHILS % (AUTO) 70 % (42-75)
[2019-12-06 09:44] LABS: ALANINE AMINOTRANSFERASE 103 U/L (12-78); ALBUMIN 2.9 g/dL (3.4-5.0); ALKALINE PHOSPHATASE 89 U/L (45-117); ANION GAP 7 mmol/L (5-15); BILIRUBIN,TOTAL 0.4 mg/dL (0.2-1.0); CALCIUM 8.1 mg/dL (8.5-10.1); CREATININE 0.55 mg/dL (0.55-1.02); TOTAL PROTEIN 6.2 g/dL (6.4-8.2)
[2019-12-06] MEDS: SODIUM CHLORIDE 0.9% 1,000 ML IV SCH (10:00)
[2019-12-06] MEDS: POTASSIUM CHLORIDE 20 MEQ, MAGNESIUM SULFATE 1 GM, MVI ADULT 10 ML, THIAMINE 200 MG, FO... IV SCH (10:00)
[2019-12-06 15:21] VITALS: BP 115/79
[2019-12-06 18:44] VITALS: BP 127/80
[2019-12-07] MEDS: ALBUTEROL-IPRATROPIUM MDI INH INH PRN (00:11)
[2019-12-07] MEDS: SODIUM CHLORIDE 0.9% 1,000 ML IV SCH ×3 (01:19→21:00)
[2019-12-07 03:42] VITALS: BP 121/75
[2019-12-07] MEDS: HEPARIN 5,000 UNITS/ML, 1ML SQ SCH ×3 (05:17→20:00)
[2019-12-07 06:19] LABS: BASOPHILS # (AUTO) 0.02 x10^3/uL (0-0.1); BASOPHILS % (AUTO) 0 % (0-1); EOSINOPHILS % (AUTO) 8 % (1-7); LYMPHOCYTES # (AUTO) 1.47 x10^3/uL (1-3.4); LYMPHOCYTES % (AUTO) 25 % (22-44); MD NO; MEAN CORPUSCULAR HEMOGLOBIN 23.4 pg (27.0-34.8); MEAN CORPUSCULAR HGB CONC 30.8 g/dL (32.4-35.8); MEAN CORPUSCULAR VOLUME 75.8 fL (80-100); MEAN PLATELET VOLUME 8.5 fL (7.4-10.4); MONOCYTES # (AUTO) 0.53 x10^3/uL (0.2-0.8); MONOCYTES % (AUTO) 9 % (2-9); NEUTROPHILS # (AUTO) 3.39 x10^3/uL (1.8-6.8); NEUTROPHILS % (AUTO) 57 % (42-75); PLATELET COUNT 271 x10^3/uL (130-400)
[2019-12-07 06:32] LABS: CHLORIDE 113 mmol/L (98-107)
[2019-12-07 06:46] LABS: ALANINE AMINOTRANSFERASE 92 U/L (12-78); ALBUMIN 2.8 g/dL (3.4-5.0); ALKALINE PHOSPHATASE 87 U/L (45-117); ANION GAP 7 mmol/L (5-15); BILIRUBIN,TOTAL 0.5 mg/dL (0.2-1.0); CALCIUM 7.9 mg/dL (8.5-10.1); CREATININE 0.65 mg/dL (0.55-1.02); TOTAL PROTEIN 6.5 g/dL (6.4-8.2)
[2019-12-07 06:49] VITALS: BP 107/68
[2019-12-07] MEDS ORDERED: hydrOXyzine 10MG TABLET PO PRN (10:00)
[2019-12-07] MEDS ORDERED: BUPRENORPHINE/NALOXONE 8-2MG SL SCH (10:00)
[2019-12-07] MEDS: BUPRENORPHINE/NALOXONE 8-2MG SL SCH ×2 (10:36→20:16)
[2019-12-07] MEDS: POTASSIUM CHLORIDE 20 MEQ, MAGNESIUM SULFATE 1 GM, MVI ADULT 10 ML, THIAMINE 200 MG, FO... IV SCH (11:19)
[2019-12-07 12:47] VITALS: BP 122/84
[2019-12-07] MEDS ORDERED: QUET50TA5 PO (12:59)
[2019-12-07] MEDS ORDERED: NICOTINE 21 MG/24 HR PATCH.TD24 TD SCH (17:00)
[2019-12-07 20:36] VITALS: BP 143/96
[2019-12-07] MEDS ORDERED: QUETIAPINE 25MG TABLET PO SCH (21:00)
[2019-12-07] MEDS: CALCIUM CARBONATE 500 MG TAB.CHEW PO PRN (21:21)
[2019-12-08 01:02] VITALS: BP 132/83
[2019-12-08] MEDS: HEPARIN 5,000 UNITS/ML, 1ML SQ SCH ×2 (04:00→12:04)
[2019-12-08] MEDS: CALCIUM CARBONATE 500 MG TAB.CHEW PO PRN (04:22)
[2019-12-08] MEDS: ALBUTEROL-IPRATROPIUM MDI INH INH PRN (04:22)
[2019-12-08] MEDS: SODIUM CHLORIDE 0.9% 1,000 ML IV SCH (06:41)
[2019-12-08 07:10] VITALS: BP 126/82
[2019-12-08] MEDS: BUPRENORPHINE/NALOXONE 8-2MG SL SCH (09:54)
[2019-12-08] MEDS: BUPROPION 75 MG TABLET PO SCH ×2 (09:54→15:01)
[2019-12-08] MEDS: POTASSIUM CHLORIDE 20 MEQ, MAGNESIUM SULFATE 1 GM, MVI ADULT 10 ML, THIAMINE 200 MG, FO... IV SCH (09:55)
[2019-12-08 12:28] VITALS: BP 127/79
[2019-12-08] MEDS ORDERED: HYDR-826 PO (15:47)
[2019-12-08] MEDS ORDERED: BUPR75TA6 PO (15:48)
== END 2019-12-08 16:08 | disposition home or self-care (01) | DRG 917 ==
LOC: ED 18:15 → EDIP 18:43 → 4WST 23:58
PROVIDERS: ADMIT Internal Medicine; ATTEND Internal Medicine
DX: T43.621A Poisoning by amphetamines, accidental (unintentional), initial encounter (principal); G92 Toxic encephalopathy; E87.2 Acidosis; J45.909 Unspecified asthma, uncomplicated; F17.210 Nicotine dependence, cigarettes, uncomplicated; E87.6 Hypokalemia; D64.9 Anemia, unspecified; F19.10 Other psychoactive substance abuse, uncomplicated; G40.909 Epilepsy, unspecified, not intractable, without status epilepticus; F10.10 Alcohol abuse, uncomplicated; T40.1X1A Poisoning by heroin, accidental (unintentional), initial encounter; T51.91XA Toxic effect of unspecified alcohol, accidental (unintentional), initial encounter; F32.9 Major depressive disorder, single episode, unspecified; D50.9 Iron deficiency anemia, unspecified; Y90.6 Blood alcohol level of 120-199 mg/100 ml; F41.1 Generalized anxiety disorder; Z91.5 Personal history of self-harm
CPT/HCPCS: 36415; 87806; J0574; 71045; 80053; 80307; 82550; 82728; 83540; 83550; 83735; 83880; 84484; 84702; 85025; 93005; 96361; 96374; 96375; G0378; J1644; J3411; J3475; J3480; G0475; J1200; J2060; J7030; Q0177

== ENCOUNTER 2020-02-02 21:43 | Emergency (ER) | payer MEDICAID ==
[~2020-02-02] VITALS: Ht 165.1 cm; Wt 46.8 kg
[~2020-02-02 21:43] MED LIST changes: +BUPR75TA6 PO; +HYDR-826 PO; +QUET50TA5 PO
[2020-02-02] MEDS ORDERED: OXYcodone/APAP 5/325MG TABLET PO ONE (22:30)
[2020-02-02 22:46] LABS: ALANINE AMINOTRANSFERASE 25 U/L (12-78); ALBUMIN 3.3 g/dL (3.4-5.0); ANION GAP 9 mmol/L (5-15); CALCIUM 8.9 mg/dL (8.5-10.1); CHLORIDE 102 mmol/L (98-107); CREATININE 0.84 mg/dL (0.55-1.02)
[2020-02-02] MEDS ORDERED: OXYcodone/APAP 5/325MG TABLET ONE (22:47)
[2020-02-02 22:51] LABS: ALKALINE PHOSPHATASE 96 U/L (45-117); BILIRUBIN,TOTAL 0.4 mg/dL (0.2-1.0); TROPONIN I < 0.015 ng/mL (0.000-0.045)
[2020-02-02 22:53] LABS: MEAN CORPUSCULAR HEMOGLOBIN 22.1 pg (27.0-34.8); MEAN CORPUSCULAR VOLUME 73.6 fL (80-100); MEAN PLATELET VOLUME 8.7 fL (7.4-10.4); PLATELET COUNT 326 x10^3/uL (130-400); RED BLOOD COUNT 4.87 x10^6/uL (3.82-5.3); RED CELL DISTRIBUTION WIDTH 19.5 % (9.6-15.2)
--- NOTE | 2020-02-02 22:56 | NUR ---
rpd at bedside to take pts and family report. will medicate when pd finished interviewing.
[2020-02-02 23:24] VITALS: BP 123/77
--- NOTE | 2020-02-02 23:28 | NUR ---
PT RESTING AND IN NAD. VSS. HR STILL ELEVATED BUT IMPROVED. PAIN MEDS NOT GIVEN BECAUSE PT IS DROWZY. AWARE. CALL LIGHT IN REACH
[2020-02-02 23:30] LABS: BASOPHILS # (AUTO) 0.01 x10^3/uL (0-0.1); BASOPHILS % (AUTO) 0 % (0-1); EOSINOPHILS % (AUTO) 1 % (1-7); LYMPHOCYTES # (AUTO) 0.54 x10^3/uL (1-3.4); LYMPHOCYTES % (AUTO) 6 % (22-44); MD SCAN; MONOCYTES # (AUTO) 0.04 x10^3/uL (0.2-0.8); MONOCYTES % (AUTO) 0 % (2-9); NEUTROPHILS # (AUTO) 9.11 x10^3/uL (1.8-6.8); NEUTROPHILS % (AUTO) 93 % (42-75)
--- NOTE | 2020-02-03 | NUR ---
Caregiver given discharge instructions and they have confirmed that they understand the instructions. Patient taken out by wheelchair.
== END 2020-02-03 00:03 | disposition home or self-care (01) ==
LOC: ED 22:48
DX: R05 Cough (principal); R06.02 Shortness of breath; R07.9 Chest pain, unspecified; J45.909 Unspecified asthma, uncomplicated; F17.200 Nicotine dependence, unspecified, uncomplicated
CPT/HCPCS: 36415; 71045; 80053; 84484; 84703; 85025; 93005; 99285

== ENCOUNTER 2020-10-07 17:20 | Emergency (ER) | payer MEDICAID ==
[~2020-10-07] VITALS: Ht 165.1 cm; Wt 55.7 kg
[2020-10-07 17:28] VITALS: BP 146/62
[2020-10-07 18:19] LABS: BASOPHILS % (AUTO) 0 % (0-1); EOSINOPHILS % (AUTO) 3 % (1-7); LYMPHOCYTES % (AUTO) 16 % (22-44); MEAN CORPUSCULAR HEMOGLOBIN 20.5 pg (27.0-34.8); MEAN CORPUSCULAR HGB CONC 30.3 g/dL (32.4-35.8); MEAN PLATELET VOLUME 8.7 fL (7.4-10.4); MONOCYTES % (AUTO) 5 % (2-9); NEUTROPHILS % (AUTO) 76 % (42-75); PLATELET COUNT 228 x10^3/uL (130-400); RED BLOOD COUNT 4.03 x10^6/uL (3.82-5.3); RED CELL DISTRIBUTION WIDTH 21.9 % (9.6-15.2)
[2020-10-07 18:26] LABS: ALANINE AMINOTRANSFERASE 28 U/L (12-78); ALBUMIN 2.9 g/dL (3.4-5.0); ANION GAP 7 mmol/L (5-15); CALCIUM 9.6 mg/dL (8.5-10.1); CHLORIDE 104 mmol/L (98-107); CREATININE 0.67 mg/dL (0.55-1.02)
[2020-10-07 18:28] LABS: ALKALINE PHOSPHATASE 94 U/L (45-117); BILIRUBIN,TOTAL 0.2 mg/dL (0.2-1.0); TOTAL PROTEIN 6.8 g/dL (6.4-8.2)
[2020-10-07 18:49] LABS: MD MORPH REVIEW ONLY
[2020-10-07 18:50] LABS: <PLATELET ESTIMATE> ADEQUATE; ANISOCYTOSIS 2+; HYPOCHROMIA 1+; MICROCYTOSIS 2+
[2020-10-07 18:51] LABS: <PLT MORPHOLOGY> NORMAL PLT MORPH; OVALOCYTES 1+
--- NOTE | 2020-10-07 20:30 | NUR ---
CALLED TO REPEAT VITALS AT 2030, NO ANSWER X1
--- NOTE | 2020-10-07 21:17 | NUR ---
NILX 2
--- NOTE | 2020-10-07 21:29 | NUR ---
NIL X 3
== END 2020-10-07 21:32 | disposition left against medical advice (07) ==
LOC: ED 19:20
DX: R07.89 Other chest pain (principal); R50.9 Fever, unspecified; R00.0 Tachycardia, unspecified
CPT/HCPCS: 36415; 71046; 80053; 85025; 93005; 99285

== ENCOUNTER 2020-11-08 19:31 | Emergency (ER) | payer MEDICAID ==
[~2020-11-08] VITALS: Ht 165.1 cm; Wt 53.5 kg
[2020-11-08 19:34] VITALS: BP 138/98
[2020-11-08] MEDS ORDERED: ONDANSETRON ODT 4 MG ONE (20:57)
[2020-11-08] MEDS ORDERED: ONDANSETRON 2MG/ML, 2ML IVPush ONE (21:00)
[2020-11-08] MEDS ORDERED: MAGNESIUM SULFATE 1 GM, THIAMINE 100 MG, FOLIC ACID 1 MG, MVI ADULT 10 ML in SODIUM CHL... IV ONE (21:00)
--- NOTE | 2020-11-08 21:01 | NUR ---
PIV PLACEMENT UNSSUCCESSFUL. PER ERMD, OK TO CHANGE ZOFRAN TO PO AND PO WATER. LAB AT BEDSIDE. ZOFRAN ADMIN ORDERED AND WATER PROVIDED. PT CONNECTED TO MONITORING.
[2020-11-08 21:17] LABS: BASOPHILS % (AUTO) 1 % (0-1); EOSINOPHILS % (AUTO) 5 % (1-7); LYMPHOCYTES % (AUTO) 31 % (22-44); MEAN CORPUSCULAR HEMOGLOBIN 21.3 pg (27.0-34.8); MEAN CORPUSCULAR HGB CONC 30.5 g/dL (32.4-35.8); MEAN PLATELET VOLUME 8.1 fL (7.4-10.4); MONOCYTES % (AUTO) 5 % (2-9); NEUTROPHILS % (AUTO) 59 % (42-75); PLATELET COUNT 320 x10^3/uL (130-400); RED BLOOD COUNT 4.29 x10^6/uL (3.82-5.3); RED CELL DISTRIBUTION WIDTH 23.1 % (9.6-15.2)
[2020-11-08 21:19] LABS: ALANINE AMINOTRANSFERASE 19 U/L (12-78); ALBUMIN 2.9 g/dL (3.4-5.0); ANION GAP 11 mmol/L (5-15); CALCIUM 9.2 mg/dL (8.5-10.1); CHLORIDE 107 mmol/L (98-107); CREATININE 0.96 mg/dL (0.55-1.02)
[2020-11-08 21:23] LABS: ALKALINE PHOSPHATASE 88 U/L (45-117); BILIRUBIN,TOTAL 0.1 mg/dL (0.2-1.0)
[2020-11-08] MEDS ORDERED: ONDANSETRON ODT 4 MG PO ONE (21:30)
[2020-11-08 21:36] LABS: ANISOCYTOSIS 2+
--- NOTE | 2020-11-08 21:47 | NUR ---
PT LEFT PRIOR TO RECEIVING DC PAPERWORK.
[2020-11-08 21:57] LABS: HYPOCHROMIA 1+; MICROCYTOSIS 2+; OVALOCYTES 1+
[2020-11-08 21:58] LABS: <PLATELET ESTIMATE> ADEQUATE; <PLT MORPHOLOGY> NORMAL PLT MORPH
== END 2020-11-08 21:50 | disposition home or self-care (01) ==
LOC: ED 21:40
DX: F10.120 Alcohol abuse with intoxication, uncomplicated (principal); F11.10 Opioid abuse, uncomplicated; F15.10 Other stimulant abuse, uncomplicated; F41.9 Anxiety disorder, unspecified; R11.0 Nausea; R10.9 Unspecified abdominal pain; Z72.9 Problem related to lifestyle, unspecified; J45.909 Unspecified asthma, uncomplicated; G40.909 Epilepsy, unspecified, not intractable, without status epilepticus; F17.200 Nicotine dependence, unspecified, uncomplicated; Y90.0 Blood alcohol level of less than 20 mg/100 ml
CPT/HCPCS: 36415; 80053; 80320; 84703; 85025; 99283; Q0162; G0480